=== PATIENT | female | born 1985 | race Caucasian/White ===

== ENCOUNTER 2016-10-04 15:47 | Observation (INO) | payer MEDICAID, OTHER ==
[2016-10-04] MEDS ORDERED: PROTONIX INJ 40 MG VIAL IVP ONE (16:40)
[2016-10-04] MEDS ORDERED: ZOFRAN INJ 4 MG VIAL 16 MG, ATIVAN INJ 2 MG VIAL 1 MG, DECADRON INJ 10 MG in NS 50 ML I... IV PRN (16:40)
[2016-10-04 17:07] LABS: BASOPHILS % (AUTO) 0.5 % (0.2-1.0); EOSINOPHILS % (AUTO) 0.3 % (0.9-2.9); HEMATOCRIT 38.9 % (36.0-47.0); HEMOGLOBIN 13.1 g/dL (12.0-16.0); LYMPHOCYTES # (AUTO) 1.8 X10^3/uL (1.3-2.9); LYMPHOCYTES % (AUTO) 19.8 % (21.0-51.0); MEAN CORPUSCULAR HEMOGLOBIN 29.3 pg (27.0-34.0); MEAN CORPUSCULAR HGB CONC 33.7 g/dL (33.0-35.0); MEAN CORPUSCULAR VOLUME 86.8 fL (80.0-100.0); MEAN PLATELET VOLUME 8.2 fL (7.4-11.0); MONOCYTES # (AUTO) 0.8 x10^3/uL (0.3-0.8); MONOCYTES % (AUTO) 9.2 % (0.0-13.0); NEUTROPHILS # (AUTO) 6.3 x10^3/uL (2.2-4.8); NEUTROPHILS % (AUTO) 70.2 % (42.0-75.0); PLATELET COUNT 255 X10^3/uL (150.0-450.0); RED BLOOD COUNT 4.48 X10^6/uL (3.5-5.4); RED CELL DISTRIBUTION WIDTH 12.8 % (11.6-16.5); WHITE BLOOD COUNT 8.9 X10^3/uL (3.6-10.0)
[2016-10-04 17:21] LABS: ALANINE AMINOTRANSFERASE 47 Units/L (12-78); ALBUMIN 3.5 g/dL (3.4-5.0); ALKALINE PHOSPHATASE 84 Units/L (46-116); AMYLASE 15 Units/L (25-115); ASPARTATE AMINO TRANSFERASE 27 Units/L (15-37); BLOOD UREA NITROGEN 8 mg/dL (7-18); CALCIUM 8.2 mg/dL (8.5-10.1); CARBON DIOXIDE 24.6 mmol/L (21-32); CHLORIDE 104 mmol/L (98-107); CREATININE 0.72 mg/dL (0.55-1.02); GLUCOSE 89 mg/dL (65-99); LIPASE 102 Units/L (73-393); SODIUM 139 mmol/L (136-145); TOTAL PROTEIN 7.4 g/dL (6.4-8.2); eGFR BLACK RACES > 60 (>60); eGFR NON BLACK RACES > 60 (>60)
[2016-10-04] MEDS ORDERED: KLONOPIN TAB 1 MG PO PRN (17:37)
[2016-10-04] MEDS ORDERED: MORPHINE SULFATE INJ 2 MG IVP PRN (17:38)
--- NOTE | 2016-10-04 17:44 | DR.H&P ---
H&P - History & Physical for Day of: H&P Date: 10/04/16 - Chief Complaint Chief Complaint: abdominal pain, nausea, fever - Allergies Allergies/Adverse Reactions: Allergies Allergy/AdvReac Type Severity Reaction Status Date / Time Sulfa Antibiotics Allergy Verified 12/22/14 17:43 Sulfa Drugs Allergy Verified 12/22/14 17:43 - History of Present Illness History of Present Illness: PT WAS A DIRECT ADMIT FROM DR STAHL OFFICE WITH FEVER AND LOWER ABDOMINAL PAIN, WORSE TODAY, ONSET 2-3 DAYS AGO. PMH DDD NECK PAIN/ LOWER BACK PAIN. PLAN TO ADMIT FOR EVALUATION OF ACUTE ABDOMINAL PAIN, R/ P APPENDICITIS/ SURGICAL ABD. PLAN TO OBTAIN LABS CBC CMP, UA, CT ABD/PELIVS, WILL START CIPRO IV, PAIN AND NAUSEA CONTROL - Past Medical History Past Medical History: Anxiety, Arthritis, Depression - Past Surgical History Surgical History: , Cholecystectomy - Family History Family Medical History: Diabetes Mellitus, Cancer, Heart Failure, Hypertension - Social History Does patient currently use any type of tobacco product: No Have you used tobacco products in the last 12 months: No Type of Tobacco Use: None Does any household member use tobacco: No Alcohol Use: None Drug Use: None - Review of Systems Constitutional: Fever, Chills, Sweats, Weakness, Malaise Eyes: No Symptoms Reported ENT: No Symptoms Reported Respiratory: No Symptoms Reported Cardiovascular: No Symptoms Reported Gastrointestinal: Nausea, Abdominal Pain Genitourinary: No Symptoms Reported Musculoskeletal: Back Pain Skin: No Symptoms Reported Neurological: No Symptoms Reported - Physical Exam Vital Signs: Blood Pressure [Right Arm] 116/74 Blood Pressure 135/93 Oriented: Normal Eyes: Normal Ear: Normal Nose: Normal Throat: Normal Respiratory: Clear Throughout Cardiovascular: Normal : Normal Auscultation: Bowel Sounds: Normal Palpation: Normal Tenderness: RLQ, Periumbilical Skin: Decreased Turgur Musculoskeletal: Back:Thoracic, Tender (NECK TENDERNESS/ CHRONIC) Psychiatric: Normal Mood Description: Calm Speech Pattern: Clear, Appropriate - Assessment/Plan (1) Abdominal pain Qualifiers: Abdominal location: unspecified location Qualified Code(s): R10.9 - Unspecified abdominal pain Status: Acute Plan: ADMIT, CBC CMP AMYLASE LIPASE UA ON ADMISSION. CT ABD/PELVIS WITH CONTRAST. START IV FLUIDS, IV ATBX. PAIN AND NAUSEA CONTROL (2) Nausea & vomiting Qualifiers: Vomiting type: unspecified Vomiting Intractability: unspecified Qualified Code(s): R11.2 - Nausea with vomiting, unspecified Status: Acute (3) Chronic back pain Qualifiers: Back pain location: B Back pain laterality: B Sciatica presence: S Sciatica laterality: S Status: Acute
[2016-10-04 18:56] VITALS: BMI 37.4
[2016-10-04] MEDS: NS 1000 ML 1,000 ML IV SCH (18:58)
[2016-10-04] MEDS ORDERED: NS 100 ML IV 100 ML IV ONE (19:47)
[2016-10-04] MEDS ORDERED: BUTT CREAM (COMPOUND) TOP PRN (19:47)
[2016-10-04] MEDS: CIPRO IV 400 MG PREMIX* 400 MG/200 ML IV.SOLN. IV SCH (20:10)
[2016-10-04 20:40] LABS: BILIRUBIN,URINE NEGATIVE (NEGATIVE); BLOOD/HEMOGLOBIN,URINE 1+ (NEGATIVE); GLUCOSE, URINE NEGATIVE (NEGATIVE); KETONES,URINE NEGATIVE (NEGATIVE); LEUKOCYTE ESTERASE ,URINE NEGATIVE (NEGATIVE); NITRITES,URINE NEGATIVE (NEGATIVE); PROTEIN,URINE NEGATIVE (NEGATIVE); UROBILINOGEN,URINE NORMAL (NORMAL)
[2016-10-04 20:52] LABS: AMORPHOUS SEDIMENT,UR TRACE /HPF (NEGATIVE); APPEARANCE,URINE CLEAR (CLEAR); BACTERIA,URINE TRACE /HPF (NEGATIVE); COLOR,URINE PALE YELLOW (YELLOW); SQUAMOUS EPITHELIAL CELL,UR FEW /HPF (NEGATIVE)
[2016-10-04] MEDS ORDERED: PAXIL PO SCH (21:00)
--- NOTE | 2016-10-04 21:35 | CT ---
CT abdomen and pelvis with contrast Indication: right lower quadrant pain with nausea Comparison: 06/28/2015 Technique: Multiple axial images of the abdomen and pelvis were obtained from the lung bases to the pubic symph ysis after the administration of IV contrast. Coronal and sagittal reformatted images were also pro vided. Radiation dose reduction techniques were performed utilizing adjustment for MA/kVP based on patient body size. Findings: The lung bases are clear. The liver, bile ducts, spleen, pancreas and adrenal glands are normal. Pre vious cholecystectomy is noted. No mass, nephrolithiasis or hydronephrosis within either kidney. Sma ll round hypoattenuating lesion within both kidneys are consistent with a cyst based on [place] a ttenuation. Upper GI tract demonstrates no evidence of mass or obstruction. Urinary bladder is selina l. The uterus has a physiologic appearance. Small cysts are noted within both adnexa. Small amount o f pelvic free fluid. The rectum and colon a are unremarkable. The appendix is normal. No pelvic free fluid or adenopathy. There is a circumaortic left renal vein. Very small fat containing periumbilic al hernia is noted. Review of bone windows demonstrates no acute osseous abnormality. Impression: 1.No acute inflammatory process within the abdomen or pelvis. 2. Incidental findings as described above. Reported By:
[2016-10-05] MEDS: NS 1000 ML 1,000 ML IV SCH ×2 (03:42→08:16)
[2016-10-05 06:16] LABS: BASOPHILS % (AUTO) 0.4 % (0.2-1.0); EOSINOPHILS % (AUTO) 0.6 % (0.9-2.9); HEMATOCRIT 35.5 % (36.0-47.0); HEMOGLOBIN 11.9 g/dL (12.0-16.0); LYMPHOCYTES # (AUTO) 2.5 X10^3/uL (1.3-2.9); LYMPHOCYTES % (AUTO) 35.2 % (21.0-51.0); MEAN CORPUSCULAR HEMOGLOBIN 29.3 pg (27.0-34.0); MEAN CORPUSCULAR HGB CONC 33.6 g/dL (33.0-35.0); MEAN PLATELET VOLUME 8.2 fL (7.4-11.0); MONOCYTES % (AUTO) 14.3 % (0.0-13.0); NEUTROPHILS # (AUTO) 3.5 x10^3/uL (2.2-4.8); NEUTROPHILS % (AUTO) 49.5 % (42.0-75.0); PLATELET COUNT 237 X10^3/uL (150.0-450.0); RED BLOOD COUNT 4.07 X10^6/uL (3.5-5.4); RED CELL DISTRIBUTION WIDTH 12.6 % (11.6-16.5); WHITE BLOOD COUNT 7.1 X10^3/uL (3.6-10.0)
[2016-10-05 06:37] LABS: ALANINE AMINOTRANSFERASE 41 Units/L (12-78); ALBUMIN 2.9 g/dL (3.4-5.0); ALKALINE PHOSPHATASE 71 Units/L (46-116); ASPARTATE AMINO TRANSFERASE 26 Units/L (15-37); BLOOD UREA NITROGEN 5 mg/dL (7-18); CALCIUM 7.8 mg/dL (8.5-10.1); CHLORIDE 107 mmol/L (98-107); COR CA(FOR HYPOALB) 8.7 mg/dL (8.5-10.1); CREATININE 0.72 mg/dL (0.55-1.02); GLUCOSE 100 mg/dL (65-99); SODIUM 140 mmol/L (136-145); TOTAL PROTEIN 6.3 g/dL (6.4-8.2); eGFR BLACK RACES > 60 (>60); eGFR NON BLACK RACES > 60 (>60)
[2016-10-05] MEDS: CIPRO IV 400 MG PREMIX* 400 MG/200 ML IV.SOLN. IV SCH (08:15)
[2016-10-05] MEDS ORDERED: AMBIEN PO PRN (10:13)
[2016-10-05 13:16] VITALS: BP 102/56
[2016-10-05] MEDS ORDERED: TYLENOL 325 MG TAB PO PRN (13:27)
[2016-10-06] MEDS ORDERED: PROTONIX TAB 40 MG PO SCH (09:00)
--- NOTE | 2016-10-08 09:03 | PCM.DCPLAN ---
Discharge Summary - Admission Date Date of Admission: 10/04/16 - Discharge Date Discharge Date: 10/05/16 - Admission Diagnoses (1) Abdominal pain Status: Acute - Discharge Diagnoses Discharge Diagnosis: ABD PAIN LIKELY SECONDARY TO GASTROENTERITIS - Discharge Medications Discharge Medications: Oxycodone HCl 1 tab PO PRN PRN 10/05/16 [History] Pantoprazole Sodium 40 mg [PROTONIX 40 MG *] 40 mg PO DAILY 10/05/16 [History] Zolpidem Tartrate [AMBIEN 5 MG *] 5 mg PO HS PRN 10/05/16 [History] - Hospital Course Vital Signs: Temperature 97.7 F Pulse Rate [Right Brachial] 66 Pulse Rate [Left Radial] 73 Respiratory Rate 18 Blood Pressure [Left Arm] 103/70 Blood Pressure [Left Radial 115/69 Artery] Blood Pressure [Right Arm] 102/56 Blood Pressure 135/93 O2 Sat by Pulse Oximetry 97 Latest Lab Results: Laboratory Last Values WBC 7.1 X10^3/uL (3.6-10.0) 10/05/16 05:20 RBC 4.07 X10^6/uL (3.5-5.4) 10/05/16 05:20 Hgb 11.9 g/dL (12.0-16.0) L 10/05/16 05:20 Hct 35.5 % (36.0-47.0) L 10/05/16 05:20 MCV 87.0 fL (80.0-100.0) 10/05/16 05:20 MCH 29.3 pg (27.0-34.0) 10/05/16 05:20 MCHC 33.6 g/dL (33.0-35.0) 10/05/16 05:20 RDW 12.6 % (11.6-16.5) 10/05/16 05:20 Plt Count 237 X10^3/uL (150.0-450.0) 10/05/16 05:20 MPV 8.2 fL (7.4-11.0) 10/05/16 05:20 Neut % 49.5 % (42.0-75.0) 10/05/16 05:20 Lymph % 35.2 % (21.0-51.0) 10/05/16 05:20 [place] % 14.3 % (0.0-13.0) H 10/05/16 05:20 Eos % 0.6 % (0.9-2.9) L 10/05/16 05:20 Baso % 0.4 % (0.2-1.0) 10/05/16 05:20 Neut # 3.5 x10^3/uL (2.2-4.8) 10/05/16 05:20 Lymph # 2.5 X10^3/uL (1.3-2.9) 10/05/16 05:20 [place] # 1.0 x10^3/uL (0.3-0.8) H 10/05/16 05:20 Eos # 0.0 x10^3/uL (0.0-0.2) 10/05/16 05:20 Baso # 0.0 X10^3/uL (0.0-0.1) 10/05/16 05:20 Absolute Nucleated RBC 0.0 /100WBC 10/05/16 05:20 Sodium 140 mmol/L (136-145) 10/05/16 05:20 Corrected Sodium TNP 10/05/16 05:20 Potassium 4.1 mmol/L (3.5-5.1) 10/05/16 05:20 Chloride 107 mmol/L (98-107) 10/05/16 05:20 Carbon Dioxide 24.0 mmol/L (21-32) 10/05/16 05:20 BUN 5 mg/dL (7-18) L 10/05/16 05:20 Creatinine 0.72 mg/dL (0.55-1.02) 10/05/16 05:20 Est GFR (MDRD) Af Amer > 60 (>60) 10/05/16 05:20 Est GFR (MDRD) Non-Af > 60 (>60) 10/05/16 05:20 Glucose 100 mg/dL (65-99) H 10/05/16 05:20 Calcium 7.8 mg/dL (8.5-10.1) L 10/05/16 05:20 Corrected Calcium 8.7 mg/dL (8.5-10.1) 10/05/16 05:20 Total Bilirubin 0.20 mg/dL (0.2-1.0) 10/05/16 05:20 AST 26 Units/L (15-37) 10/05/16 05:20 ALT 41 Units/L (12-78) 10/05/16 05:20 Alkaline Phosphatase 71 Units/L (46-116) 10/05/16 05:20 Total Protein 6.3 g/dL (6.4-8.2) L 10/05/16 05:20 Albumin 2.9 g/dL (3.4-5.0) L 10/05/16 05:20 Globulin 3.4 g/dL (2.5-4.5) 10/05/16 05:20 Albumin/Globulin Ratio 0.9 Ratio (1.1-2.1) L 10/05/16 05:20 Amylase 15 Units/L (25-115) L 10/04/16 17:00 Lipase 102 Units/L (73-393) 10/04/16 17:00 Specimen Type Clean catch urine 10/04/16 20:15 Urine Color Pale yellow (YELLOW) 10/04/16 20:15 Urine Appearance Clear (CLEAR) 10/04/16 20:15 Urine pH 5.0 (5.0 - 8.0) 10/04/16 20:15 Ur Specific [place] 1.005 (1.000-1.030) 10/04/16 20:15 Urine Protein Negative (NEGATIVE) 10/04/16 20:15 Urine Glucose (UA) Negative (NEGATIVE) 10/04/16 20:15 Urine Ketones Negative (NEGATIVE) 10/04/16 20:15 Urine Occult Blood 1+ (NEGATIVE) 10/04/16 20:15 Urine Nitrite Negative (NEGATIVE) 10/04/16 20:15 Urine Bilirubin Negative (NEGATIVE) 10/04/16 20:15 Urine Urobilinogen Normal (NORMAL) 10/04/16 20:15 Ur Leukocyte Esterase Negative (NEGATIVE) 10/04/16 20:15 Urine RBC 3-4 /HPF (NEGATIVE) 10/04/16 20:15 Urine WBC 0-1 /HPF (NEGATIVE) 10/04/16 20:15 Ur Squamous Epith Cells Few /HPF (NEGATIVE) 10/04/16 20:15 Amorphous Sediment Trace /HPF (NEGATIVE) 10/04/16 20:15 Urine Bacteria Trace /HPF (NEGATIVE) 10/04/16 20:15 Ur Culture Indicated? No/not indicated 10/04/16 20:15 Hospital Course: PT WAS A DIRECT ADMIT FROM DR STAHL OFFICE WITH FEVER AND LOWER ABDOMINAL PAIN, WORSE TODAY, ONSET 2-3 DAYS AGO. PMH DDD NECK PAIN/ LOWER BACK PAIN. PATIENT ADMIT FOR EVALUATION OF ACUTE ABDOMINAL PAIN. THE PATIENT HAD LABS WHICH WERE UNREMARKABLE. CT OF ABD REVEALED NO ACUTE FINDING. PATIENT'S SYMPTOMS IMPROVED AND SHE WAS DISCHARGED HOME TO BE FOLLOWED UP ON OP BASIS. - Discharge Plan Disposition: HOME, SELF-CARE Condition: Stable - Follow ups/Referrals Follow ups/Referrals: JOAQUINA TRUONG [Nurse Practitioner] - - Instructions Instructions: Abdominal Pain, Adult, Pain Medicine Instructions, Fever, Adult, [id number] Additional Instructions: rest, bland diet protonix 40mg po daily follow up with pcp in one week Forms: Patient Portal
== END 2016-10-05 14:26 | disposition home or self-care (01) ==
LOC: OBS 15:47
PROVIDERS: ADMIT Internal Medicine; ATTEND Internal Medicine
DX: R10.84 Generalized abdominal pain (principal); K52.89 Other specified noninfective gastroenteritis and colitis; R50.9 Fever, unspecified; R11.2 Nausea with vomiting, unspecified; D64.89 Other specified anemias; M54.2 Cervicalgia; M54.5 Low back pain; F41.8 Other specified anxiety disorders; M13.89 Other specified arthritis, multiple sites; F32.89 Other specified depressive episodes; R19.7 Diarrhea, unspecified
CPT/HCPCS: 36415; 74177; 80053; 81001; 82150; 83690; 85025; A4222; C9113; G0378; J0744

== ENCOUNTER → 2016-12-07 | Outpatient (CLI) | payer MEDICAID ==
[2016-10-30 04:55] VITALS: BP 131/82
--- NOTE | 2016-12-07 10:54 | US ---
HISTORY: Nontoxic goiter Study: Thyroid sonogram Comparison: None Technique: Multiple grayscale sonographic images were obtained. Findings: The right lobe measured 4.6 x 1.6 x 2.2 centimeters, the isthmus 3 millimeters, and the left lobe 4. 5 x 1.6 x 1.8 centimeters. No cysts dominant masses or nodules are identified. IMPRESSION: Normal thyroid sonogram Reported By:
== END ==
LOC: RAD 09:56
PROVIDERS: ATTEND Nurse Practitioner Family
DX: E04.8 Other specified nontoxic goiter (principal)
CPT/HCPCS: 76536

== ENCOUNTER → 2016-12-10 | Outpatient (CLI) | payer MEDICAID ==
[2016-10-30 04:55] VITALS: BP 131/82
--- NOTE | 2016-12-10 15:58 | MRI ---
HISTORY: Low back pain with numbness and tingling. Study: MR lumbar spine without contrast. Comparison: CT of the abdomen and pelvis dated October 04, 2016. CT of the lumbar spine dated February 172015. Technique: Multiplanar multi-sequence MRI of the lumbar spine obtained without contrast utilizing a standard departmental protocol. Findings: The lumbar spine demonstrates normal alignment with the expected signal characteristics of the bone marrow. The conus of the cord terminates normally at the level of L1. There is an 8 mm c yst in the medial right kidney and a 13 mm cysts in the inferior pole of the left kidney. There is a circumaortic left renal vein. The included paraspinal and retroperitoneal soft tissues are otherwis e grossly unremarkable. T12 -- L1: No significant disc disease or spinal canal/neural foraminal narrowing. L1 -- L2: No significant disc disease or spinal canal/neural foraminal narrowing. L2 -- L3: No significant disc disease or spinal canal/neural foraminal narrowing. L3 -- L4: No significant disc disease or spinal canal/neural foraminal narrowing. L4 -- L5: There is a posterior disc protrusion with mass effect on the anterior thecal sac. There is contact of the anterior traversing L5 nerve roots bilaterally without evidence of nerve root imping ement. There is mild neural foraminal narrowing bilaterally. L5 -- S1: No significant disc disease or spinal canal/neural foraminal narrowing. IMPRESSION: Posterior disc protrusion at L4-L5 with contact of the anterior traversing L5 nerve roots bilaterall y. There is mild bilateral neural foraminal narrowing at L4-L5 as well.. Reported By:
== END | disposition home or self-care (01) ==
LOC: RAD 13:56
PROVIDERS: ATTEND Nurse Practitioner Family
DX: R20.2 Paresthesia of skin (principal); M51.36 Other intervertebral disc degeneration, lumbar region
CPT/HCPCS: 72148

== ENCOUNTER 2017-01-22 17:52 | Emergency (ER) | payer MEDICAID ==
[2017-01-22 17:56] VITALS: BMI 37.8
[2017-01-22 17:57] VITALS: BP 121/84
[2017-01-22 18:36] LABS: BILIRUBIN,URINE NEGATIVE (NEGATIVE); BLOOD/HEMOGLOBIN,URINE NEGATIVE (NEGATIVE); GLUCOSE, URINE NEGATIVE (NEGATIVE); KETONES,URINE NEGATIVE (NEGATIVE); LEUKOCYTE ESTERASE ,URINE NEGATIVE (NEGATIVE); NITRITES,URINE NEGATIVE (NEGATIVE); PROTEIN,URINE NEGATIVE (NEGATIVE); UROBILINOGEN,URINE NORMAL (NORMAL)
--- NOTE | 2017-01-22 18:38 | DR.GENAD ---
HPI - PCP Primary Care Physician: DANITA - Complaint/Symptoms Chief Complaint Doctors Comments: Patient is complaining of left CVA and pelvic pain onset last night with pain getting worst today with the pain being 9 of 10. patient states she is having sharp pain lower back radiating to the lower abdomen. Patient denies dysuria, fever, chills, nausea or vomiting. States her period is last with last period 22 December 2016. Patient states she is not using any contraceptives and she is sexually active but has not been in 15 years. She denies tobacco or alcohol usage. Chief Complaint:: PT. C/O RIGHT LOWER QUADRANT AND RIGHT FLANK PAIN THAT IS SHARP IN NATURE. PT. C/O WEAKNESS X 2-3 DAYS. - Nurses notes reviewed Nurses Notes Review: Yes - Source History Provided: Patient - Mode of Arrival Mode of Arrival: Ambulatory - Timing Onset of Chief Complaint: 01/21/17 Came on: Gradually - Duration Duration: Intermittent How lon Duration: Days - Location Location: left CVA and lower abdominal pain - Severity Severity: Moderate - Modifying Factors Worsens:: movement Improves:: nothing PMH - PMH Past Medical History: Yes Past Medical History: Anxiety, Arthritis, Depression, Kidney Stones Past Surgical History: Yes Surgical History: , Cholecystectomy - Family History History of Family Medical Conditions: Yes Family Medical History: Diabetes Mellitus, Cancer, [place], Coronary Artery Disease, Hypertension - Social History Does patient currently use any type of tobacco product: No Have you used tobacco products in the last 12 months: No Type of Tobacco Use: None Does any household member use tobacco: No Alcohol Use: None Do you use any recreational Drugs:: No Lives With: Family Lives Where: Home - infectious screening In the last 2 months have you had wt loss of >10#?: NO Have you had fever, night sweats or hemotysis?: No Have you traveled outside the country in the last 6 months?: No Isolation: Standard ROS - Review of Systems Constitutional: No Symptoms Reported. negative: See HPI, Chills, Diaphoresis, Fever, Malaise, Weakness, Irritable, Fatigue, Loss of Appetite, Other Eyes: No Symptoms Reported. negative: See HPI, Eye Pain, Blurred Vision, Tearing, Discharge, Photophobia, Diplopia, Other ENTM: No Symptoms Reported. negative: See HPI, Ear Pain, Ear Discharge, Pulling on Ears, Hearing Loss, Nose Pain, Nose Discharge, Epistaxis, Nose Congestion, Mouth Pain, Mouth Swelling, Loose Teeth, Drooling, Throat Pain, Throat Swelling, Ear Foreign Body Respiratoy: No Symptoms Reported. negative: See HPI, Productive Cough, Non- Productive Cough, Moist Cough, Dry Cough, Hacking Cough, Barking Cough, Brassy Cough, Orthopnea, Short of Breath, Stridor, Wheezing, Hemoptysis, Other Cardiovascular: No Symptoms Reported. negative: See HPI, Chest Pain, Edema, Palpitations, Syncope, Cyanosis, Skin Mottling, Other Gastrointestinal/Abdominal: No Symptoms Reported, Abdominal Pain. negative: See HPI, Constipation, Diarrhea, Nausea, Vomiting, Food Intolerance, Other Genitourinary: No Symptoms Reported. negative: See HPI, Discharge, Dysuria, Frequency, Hematuria, Pain, Bleeding, Other Neurological: No Symptoms Reported. negative: See HPI, Anxiety, Depressed, Emotional Problems, Headache, Numbness, Paresthesia, Pre-existing Deficit, Seizure, Tingling, Tremors, Weakness, Dizziness, Problems Walking, Speech Problem, Other Musculoskeletal: No Symptoms Reported Integumentary: No Symptoms Reported. negative: See HPI, Change in Color, Change in Hair/Nails, Dryness, Lesions, Lumps, Rash, Itching, Wound, Bruises, Juandice, Other Hematologic/Lymphatic: No Symptoms Reported. negative: See HPI, Anemia, Blood Clots, Easy Bleeding, Easy Bruising, Swollen Glands, Lymphadenopathy, Other Endocrine: No Symptoms Reported. negative: See HPI, Excessive Sweating, Flushing, Intolerance to Cold, Intolerance to Heat, Increased Hunger, Increased Thirst, Increased Urine, Unexplained Weight Gain, Unexplained Weight Loss, Failure to Thrive, Decreased Appetite, Other Psychiatric: No Symptoms Reported. negative: See HPI, Anxiety, Depression, Hallucinations, Excessive crying, Suicidal, Other PE - Vital Signs Vitals: Temperature 98 F Pulse Rate 81 Respiratory Rate 17 Blood Pressure [Left Arm] 103/70 Blood Pressure [Left Radial 115/69 Artery] Blood Pressure [Right Arm] 102/56 Blood Pressure 121/84 O2 Sat by Pulse Oximetry 100 - General Limitations: No Limitations General Appearance: Alert, In Distress (moderate) - Head Head Exam: Normal Inspection, Atraumatic, Normocephalic - Eyes Eye exam: Normal Appearance, PERRL, EOMI. negative: Scleral Icterus, Conjunctival Injection, Nystagmus, Miosis, Mydrasis, Periorbital Swelling, Periorbital Tenderness, Other - ENT ENT Exam: Normal Exam, Normal Oropharynx, Normal External Ear Exam, Mucous Membranes Moist, TM's Normal Bilaterally External Ear Exam: Normal External Inspection TM/Canal Exam: Bilateral Normal Nose Exam: Normal Nose Exam, Sinus Tenderness Mouth Exam: Normal Inspection. negative: Drooling, Trismus, Lip Swelling, Tongue Elevation, Tongue Swelling, Laceration, Other Throat Exam: Normal Inspection. negative: Tonsillar Erythema, Tonsillomegaly, Tonsillar Exudate, R Peritonsillar Mass, L Peritonsillar Mass, Muffled Voice, Other - Neck Neck Exam: Normal Inspection, Full ROM, Trachea Midline. negative: Tenderness, Meningismus, Lymphadenopathy, Thyromegaly, Other - Chest Chest Inspection: Normal Inspection, Symmetric Chest Wall Rise - Respiratory Respiratory Exam: Normal Lung Sounds Bilat Respiratory Exam: Bilateral Clear to Auscultation - Cardiovascular Cardiovascular Exam: Regular Rate, Normal Rhythm, Normal Heart Sounds. negative : Bradycardia, Tachycardia, Irregular Rhythm, Systolic Murmur, Diastolic Murmur , Rubs, Gallop, Clicks, JVD, +S1, +S2, +S3, +S4, Other - Abdominal Exam Abdominal Exam: Normal Inspection, Normal Bowel Sounds, Soft Abdominal Tenderness: LLQ, Epigastrium, Suprapubic, Moderate - Extremities Extremities Exam: Normal Inspection, Full ROM, Normal Capillary Refill. negative: Tenderness, Edema, Joint Swelling, Calf Tenderness, Other - Back Back Exam: Normal Inspection, Full ROM - Neurologic Neurological Exam: Alert, Oriented X3, CN II-XII Intact, Normal Gait, Reflexes Normal - Psychiatric Psychiatric Exam: Normal Affect, Normal Mood - Skin Skin Exam: Warm, Dry, Intact, Normal Color. negative: Rash, Cyanosis, Diaphoresis, Erythema, Pallor, Mottled, Other ROR - Labs Reviewed Laboratory Results Reviewed?: Yes (all labs and x-ray results reviewed and discussed with patient) Result Diagrams: 01/22/17 18:45 01/22/17 18:45 Laboratory: WBC 12.6 X10^3/uL (3.6-10.0) H 01/22/17 18:45 RBC 4.11 X10^6/uL (3.5-5.4) 01/22/17 18:45 Hgb 12.3 g/dL (12.0-16.0) 01/22/17 18:45 Hct 36.4 % (36.0-47.0) 01/22/17 18:45 MCV 88.6 fL (80.0-100.0) 01/22/17 18:45 MCH 30.0 pg (27.0-34.0) 01/22/17 18:45 MCHC 33.8 g/dL (33.0-35.0) 01/22/17 18:45 RDW 13.4 % (11.6-16.5) 01/22/17 18:45 Plt Count 296 X10^3/uL (150.0-450.0) 01/22/17 18:45 MPV 8.5 fL (7.4-11.0) 01/22/17 18:45 Neut % 66.6 % (42.0-75.0) 01/22/17 18:45 Lymph % 24.6 % (21.0-51.0) 01/22/17 18:45 [place] % 7.3 % (0.0-13.0) 01/22/17 18:45 Eos % 0.3 % (0.9-2.9) L 01/22/17 18:45 Baso % 1.2 % (0.2-1.0) H 01/22/17 18:45 Neut # 8.4 x10^3/uL (2.2-4.8) H 01/22/17 18:45 Lymph # 3.1 X10^3/uL (1.3-2.9) H 01/22/17 18:45 [place] # 0.9 x10^3/uL (0.3-0.8) H 01/22/17 18:45 Eos # 0.0 x10^3/uL (0.0-0.2) 01/22/17 18:45 Baso # 0.1 X10^3/uL (0.0-0.1) 01/22/17 18:45 Absolute Nucleated RBC 0.3 /100WBC 01/22/17 18:45 Sodium 139 mmol/L (136-145) 01/22/17 18:45 Corrected Sodium TNP 01/22/17 18:45 Potassium 4.0 mmol/L (3.5-5.1) 01/22/17 18:45 Chloride 105 mmol/L (98-107) 01/22/17 18:45 Carbon Dioxide 25.3 mmol/L (21-32) 01/22/17 18:45 BUN 9 mg/dL (7-18) 01/22/17 18:45 Creatinine 0.75 mg/dL (0.55-1.02) 01/22/17 18:45 Est GFR (MDRD) Af Amer > 60 (>60) 01/22/17 18:45 Est GFR (MDRD) Non-Af > 60 (>60) 01/22/17 18:45 Glucose 98 mg/dL (65-99) 01/22/17 18:45 Calcium 8.8 mg/dL (8.5-10.1) 01/22/17 18:45 Corrected Calcium TNP 01/22/17 18:45 Total Bilirubin 0.20 mg/dL (0.2-1.0) 01/22/17 18:45 AST 28 Units/L (15-37) 01/22/17 18:45 ALT 54 Units/L (12-78) 01/22/17 18:45 Alkaline Phosphatase 81 Units/L (46-116) 01/22/17 18:45 Total Protein 7.5 g/dL (6.4-8.2) 01/22/17 18:45 Albumin 3.4 g/dL (3.4-5.0) 01/22/17 18:45 Globulin 4.1 g/dL (2.5-4.5) 01/22/17 18:45 Albumin/Globulin Ratio 0.8 Ratio (1.1-2.1) L 01/22/17 18:45 Amylase 20 Units/L (25-115) L 01/22/17 18:45 Lipase 154 Units/L (73-393) 01/22/17 18:45 HCG, Qual Positive >10 mIU/mL 01/22/17 18:45 HCG, Quant 9311 mIU/mL (0-6) H 01/22/17 18:45 Specimen Type Clean catch urine 01/22/17 18:12 Urine Color Yellow (YELLOW) 01/22/17 18:12 Urine Appearance Clear (CLEAR) 01/22/17 18:12 Urine pH 7.0 (5.0 - 8.0) 01/22/17 18:12 Ur Specific [place] 1.015 (1.000-1.030) 01/22/17 18:12 Urine Protein Negative (NEGATIVE) 01/22/17 18:12 Urine Glucose (UA) Negative (NEGATIVE) 01/22/17 18:12 Urine Ketones Negative (NEGATIVE) 01/22/17 18:12 Urine Occult Blood Negative (NEGATIVE) 01/22/17 18:12 Urine Nitrite Negative (NEGATIVE) 01/22/17 18:12 Urine Bilirubin Negative (NEGATIVE) 01/22/17 18:12 Urine Urobilinogen Normal (NORMAL) 01/22/17 18:12 Ur Leukocyte Esterase Negative (NEGATIVE) 01/22/17 18:12 Urine RBC None seen /HPF (NEGATIVE) 01/22/17 18:12 Urine WBC 0-3 /HPF (NEGATIVE) 01/22/17 18:12 Ur Squamous Epith Cells Few /HPF (NEGATIVE) 01/22/17 18:12 Amorphous Sediment 1+ /HPF (NEGATIVE) 01/22/17 18:12 Urine Bacteria 1+ /HPF (NEGATIVE) 01/22/17 18:12 Ur Culture Indicated? No/not indicated 01/22/17 18:12 - XRAY XRAY Interpreted by: Radiologist (US Pelvic: Single intrauterine pregnanacy with gestational sac measuring 8.1mm gestational age 5 weeks 2 days without measurable heart tones.) - Diagnosis Discharge Problem: Abdominal pain Qualifiers: Abdominal location: generalized Qualified Code(s): R10.84 - Generalized abdominal pain Qualifiers: Weeks of gestation: less than 8 weeks Qualified Code(s): Z3A.01 - Less than 8 weeks gestation of - Discharge Plan Disposition: HOME, SELF-CARE Condition: Stable - Follow ups/Referrals Follow ups/Referrals: LEON SAMAYOA [Primary Care Provider] - 3 days AR DUTTON [STAFF PHYSICIAN] - 3 days - Instructions Instructions: Medicines During , , Abdominal Pain During , [id number]
[2017-01-22 18:40] LABS: APPEARANCE,URINE CLEAR (CLEAR); COLOR,URINE YELLOW (YELLOW)
[2017-01-22 18:41] LABS: RBC,URINE NONE SEEN /HPF (NEGATIVE)
[2017-01-22 18:42] LABS: AMORPHOUS SEDIMENT,UR 1+ /HPF (NEGATIVE); BACTERIA,URINE 1+ /HPF (NEGATIVE); SQUAMOUS EPITHELIAL CELL,UR FEW /HPF (NEGATIVE)
[2017-01-22 19:04] LABS: BASOPHILS # (AUTO) 0.1 X10^3/uL (0.0-0.1); BASOPHILS % (AUTO) 1.2 % (0.2-1.0); EOSINOPHILS % (AUTO) 0.3 % (0.9-2.9); HEMATOCRIT 36.4 % (36.0-47.0); HEMOGLOBIN 12.3 g/dL (12.0-16.0); LYMPHOCYTES # (AUTO) 3.1 X10^3/uL (1.3-2.9); LYMPHOCYTES % (AUTO) 24.6 % (21.0-51.0); MEAN CORPUSCULAR HGB CONC 33.8 g/dL (33.0-35.0); MEAN CORPUSCULAR VOLUME 88.6 fL (80.0-100.0); MEAN PLATELET VOLUME 8.5 fL (7.4-11.0); MONOCYTES # (AUTO) 0.9 x10^3/uL (0.3-0.8); MONOCYTES % (AUTO) 7.3 % (0.0-13.0); NEUTROPHILS # (AUTO) 8.4 x10^3/uL (2.2-4.8); NEUTROPHILS % (AUTO) 66.6 % (42.0-75.0); PLATELET COUNT 296 X10^3/uL (150.0-450.0); RED BLOOD COUNT 4.11 X10^6/uL (3.5-5.4); RED CELL DISTRIBUTION WIDTH 13.4 % (11.6-16.5); WHITE BLOOD COUNT 12.6 X10^3/uL (3.6-10.0)
[2017-01-22 19:06] LABS: SERUM PREGNANCY TEST, QUAL POSITIVE >10 mIU/mL
[2017-01-22 19:13] LABS: ALANINE AMINOTRANSFERASE 54 Units/L (12-78); ALBUMIN 3.4 g/dL (3.4-5.0); ALKALINE PHOSPHATASE 81 Units/L (46-116); AMYLASE 20 Units/L (25-115); ASPARTATE AMINO TRANSFERASE 28 Units/L (15-37); BLOOD UREA NITROGEN 9 mg/dL (7-18); CALCIUM 8.8 mg/dL (8.5-10.1); CARBON DIOXIDE 25.3 mmol/L (21-32); CHLORIDE 105 mmol/L (98-107); CREATININE 0.75 mg/dL (0.55-1.02); GLUCOSE 98 mg/dL (65-99); LIPASE 154 Units/L (73-393); SODIUM 139 mmol/L (136-145); TOTAL PROTEIN 7.5 g/dL (6.4-8.2); eGFR BLACK RACES > 60 (>60); eGFR NON BLACK RACES > 60 (>60)
--- NOTE | 2017-01-22 21:43 | US ---
History: 31-year-old female with low back pain and abdominal pain with quantitative HCG 9311, patie nt unaware of the until positive HCG in the emergency room. Exam: Pelvic ultrasound Comparison: None. Technique: Multiple grayscale and color flow Doppler images of the pelvis were obtained. Findings: The uterus measures 8.5 x 5.7 x 6.4 cm and contains a single intrauterine with gestational sac measuring 8.1 mm corresponding to estimated gestational age of 5 weeks 2 days. There are no det ectable heart tones, pole or yolk sac. No evidence for myometrial masses or calcificati ons can be observed. The right and left adnexa are unremarkable. The echotexture of the right and left ovaries are unremarkable. The right and left ovaries are normal in size. The right ovary measu res 3.5 x 3.1 cm. The left ovary measures 3.1 x 2.6 cm. No adnexal mass or free fluid can be identi fied. IMPRESSION: 1. Single intrauterine with gestational sac measuring 8.1 mm foreign estimated gestationa l age of 5 weeks 2 days without measurable heart tones. Followup with OB. Reported By:
== END 2017-01-22 22:06 | disposition home or self-care (01) ==
LOC: ER 18:02
DX: R10.84 Generalized abdominal pain (principal); Z3A.01 Less than 8 weeks gestation of pregnancy
CPT/HCPCS: 36415; 76801; 80053; 81001; 82150; 83690; 84702; 84703; 85025; 99283; 99284

== ENCOUNTER 2017-04-07 16:02 | Emergency (ER) | payer OTHER, MEDICAID ==
[2017-04-07 16:18] VITALS: BP 142/65; BMI 36.6
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
== END 2017-04-07 19:00 | disposition home or self-care (01) ==
LOC: ER 16:02
DX: Z04.3 Encounter for examination and observation following other accident (principal); V87.7XXA Person injured in collision between other specified motor vehicles (traffic), initial encounter
CPT/HCPCS: 72125; 73030; 99282; 99283

== ENCOUNTER → 2017-04-07 | Outpatient (CLI) | payer MEDICAID ==
--- NOTE | 2017-04-07 16:00 | RAD ---
HISTORY: Left lower rib cage injury Study: PA and lateral views of the chest. Comparison: None. Findings: The cardiomediastinal silhouette is normal. No focal consolidations, pleural effusions or pneumothora x. Osseous structures demonstrate no acute abnormality. IMPRESSION: 1. No acute cardiopulmonary process. Reported By:
== END ==
LOC: RAD 14:40
PROVIDERS: ATTEND Nurse Practitioner Family
DX: S29.8XXA Other specified injuries of thorax, initial encounter (principal); X58.XXXA Exposure to other specified factors, initial encounter
CPT/HCPCS: 71020

== ENCOUNTER → 2017-06-03 | Outpatient (CLI) | payer MEDICAID ==
--- NOTE | 2017-06-06 15:55 | CT ---
CT abdomen and pelvis without contrast Indication: Bilateral flank pain, history of urinary calculus Comparison: 10/04/2016 Technique: CT images of the abdomen and pelvis were obtained without contrast. Automatic exposure con trol was utilized. Findings: No aggressive osseous lesions. The lung bases are clear. Within the limitations of a noncontrast study, the liver, spleen, stomach, duodenum, pancreas, adrena ls, and kidneys are unremarkable. Specifically, there are no renal or ureteral stones, or hydronephro sis. Previous cholecystectomy noted. No significant bowel thickening or dilatation of the lower GI tr act observed. Normal appendix. The uterus and ovaries are noted. The urinary bladder and rectum are u nremarkable. No free fluid or adenopathy identified. Circumaortic left renal vein incidentally noted. Impression: No etiology for patient's symptoms identified. Specifically, no evidence for urinary stone or obstruc tion. Reported By:
== END ==
LOC: RAD 13:54
PROVIDERS: ATTEND Nurse Practitioner Family
DX: R10.84 Generalized abdominal pain (principal); Z87.442 Personal history of urinary calculi
CPT/HCPCS: 74176

== ENCOUNTER → 2017-08-08 | Outpatient (CLI) | payer MEDICAID ==
--- NOTE | 2017-08-08 13:44 | RAD ---
Examination: Cervical spine, 6 views History: Neck pain Findings: AP, lateral and open-mouth odontoid views were obtained, including lateral views in flexion and extension. There is disc narrowing and posterior osteophyte formation at C4-5. Alignment is normal and does not change with sagittal motion. No fracture or bone destruction or prevertebral soft tissue abnormality is noted. There is an anterior osteophyte at C5-6 level. The C1-2 complex is intact. Impression: Degenerative disc disease and spondylosis at levels described. No acute features. Normal alignment persists between flexion and extension, without instability. The Reported By:
== END ==
LOC: RAD 12:58
PROVIDERS: ATTEND Neurological Surgery
DX: M48.02 Spinal stenosis, cervical region (principal)
CPT/HCPCS: 72050

== ENCOUNTER 2017-08-30 18:02 | Emergency (ER) | payer MEDICAID ==
[2017-08-30 18:12] VITALS: BP 124/68; BMI 39.4
--- NOTE | 2017-08-30 19:41 | DR.GENAD ---
HPI - PCP Primary Care Physician: stiven - Complaint/Symptoms Chief Complaint Doctors Comments: Patient is being followed by her primary care physician for fluctuation of in blood glucose level. She has not been diagnosed with diabetes. She has been keeping a log. Blood glucose is 83mg/dl Chief Complaint:: "I feel light headed, dizzy, shaking, weak, my sugar is going up and down for a week now " - Source History Provided: Patient - Mode of Arrival Mode of Arrival: Ambulatory - Timing Onset of Chief Complaint: 08/23/17 PMH - PMH Past Medical History: Yes Past Medical History: Anxiety, Arthritis, Depression, Kidney Stones Past Surgical History: Yes Surgical History: , Cholecystectomy - Family History History of Family Medical Conditions: Yes Family Medical History: Diabetes Mellitus, Cancer, [place], Coronary Artery Disease, Hypertension - Social History Does patient currently use any type of tobacco product: No Have you used tobacco products in the last 12 months: No Type of Tobacco Use: None Does any household member use tobacco: No Alcohol Use: None Do you use any recreational Drugs:: No Lives With: Family Lives Where: Home - infectious screening In the last 2 months have you had wt loss of >10#?: NO Have you had fever, night sweats or hemotysis?: No Have you traveled outside the country in the last 6 months?: No Isolation: Standard ROS - Review of Systems Eyes: No Symptoms Reported ENTM: No Symptoms Reported Respiratoy: No Symptoms Reported Cardiovascular: No Symptoms Reported Gastrointestinal/Abdominal: No Symptoms Reported Genitourinary: No Symptoms Reported Neurological: No Symptoms Reported Musculoskeletal: No Symptoms Reported Integumentary: No Symptoms Reported Hematologic/Lymphatic: No Symptoms Reported Endocrine: No Symptoms Reported Psychiatric: No Symptoms Reported All Other Systems: Reviewed and Negative PE - Vital Signs Vitals: Temperature 97.2 F Pulse Rate 87 Respiratory Rate 18 Blood Pressure [Left Arm] 103/70 Blood Pressure [Left Radial 115/69 Artery] Blood Pressure [Right Arm] 102/56 Blood Pressure 124/68 O2 Sat by Pulse Oximetry 99 - General Limitations: No Limitations General Appearance: Alert, In No Apparent Distress - Head Head Exam: Normal Inspection, Atraumatic - Eyes Eye exam: Normal Appearance, PERRL, EOMI - ENT ENT Exam: Normal Exam External Ear Exam: Normal External Inspection TM/Canal Exam: Bilateral Normal Nose Exam: Normal Nose Exam Mouth Exam: Normal Inspection Throat Exam: Normal Inspection - Neck Neck Exam: Normal Inspection, Full ROM - Chest Chest Inspection: Normal Inspection, Symmetric Chest Wall Rise - Respiratory Respiratory Exam: Normal Lung Sounds Bilat Respiratory Exam: Bilateral Clear to Auscultation - Cardiovascular Cardiovascular Exam: Regular Rate, Normal Rhythm - Abdominal Exam Abdominal Exam: Normal Inspection Abdominal Tenderness: negative: RUQ, RLQ, LUQ, LLQ, Epigastrium, Suprapubic, Diffuse, Mild, Moderate, Severe, Other - Extremities Extremities Exam: Normal Inspection, Full ROM - Back Back Exam: Normal Inspection, Full ROM - Neurologic Neurological Exam: Alert, Oriented X3, CN II-XII Intact - Psychiatric Psychiatric Exam: Normal Affect, Normal Mood - Skin Skin Exam: Warm, Dry, Intact ROR - Labs Reviewed Laboratory: POC Glucose (mg/dL) 83 mg/dL (65-99) 08/30/17 18:28 Influenza Type A (PCR) Negative (NEGATIVE) 08/30/17 18:25 Influenza Type B (PCR) Negative (NEGATIVE) 08/30/17 18:25 - Diagnosis Discharge Problem: Borderline hyperglycemia - Discharge Plan Condition: Stable - Follow ups/Referrals Follow ups/Referrals: LEON SAMAYOA [Primary Care Provider] - 3 days - Instructions
== END 2017-08-30 19:54 | disposition home or self-care (01) ==
LOC: ER 18:02
DX: R42 Dizziness and giddiness (principal)
CPT/HCPCS: 87502; 99282

== ENCOUNTER 2017-09-01 10:27 | Day surgery (SDC) | payer MEDICAID ==
[2017-09-01] MEDS ORDERED: D5 LR 1000 ML 1,000 ML IV ONE (10:57)
[2017-09-01] MEDS ORDERED: DIPRIVAN VIAL 20 ML ONE ×2 (11:25→11:46)
[2017-09-01 13:48] VITALS: BP 119/62
== END 2017-09-01 12:15 | disposition home or self-care (01) ==
LOC: SURG1 10:27
PROVIDERS: ATTEND Internal Medicine Gastroenterology
PROC: 0DB58ZX Excision of Esophagus, Via Natural or Artificial Opening Endoscopic, Diagnostic (ICD-10-PCS; principal; 2017-09-01 16:30)
PROC: 0DB68ZX Excision of Stomach, Via Natural or Artificial Opening Endoscopic, Diagnostic (ICD-10-PCS; principal; 2017-09-01 16:30)
PROC: 0DB88ZX Excision of Small Intestine, Via Natural or Artificial Opening Endoscopic, Diagnostic (ICD-10-PCS; principal; 2017-09-01 16:30)
PROC: 0DJ08ZZ Inspection of Upper Intestinal Tract, Via Natural or Artificial Opening Endoscopic (ICD-10-PCS; principal; 2017-09-01 16:30)
PROC: 0D757ZZ Dilation of Esophagus, Via Natural or Artificial Opening (ICD-10-PCS; principal; 2017-09-01 16:30)
DX: R13.19 Other dysphagia (principal); R10.13 Epigastric pain; R11.0 Nausea; K20.8 Other esophagitis; K22.2 Esophageal obstruction; K22.4 Dyskinesia of esophagus; K29.60 Other gastritis without bleeding
CPT/HCPCS: A4217; J3490; J7120

== ENCOUNTER 2024-03-26 06:12 | Inpatient (IN) ==
[2024-03-26] MEDS: LR 1,000 ML IV 1,000 ML IV SCH (06:35)
[2024-03-26] MEDS: NOZIN NASAL SANITIZER TP ONE (06:36)
[2024-03-26] MEDS: ANCEF VIAL 1 GRAM ONE (06:36)
[2024-03-26] MEDS: LR 1,000 ML IV 1,000 ML IV ONE (06:37)
[2024-03-26 07:01] VITALS: BMI 39.9
[2024-03-26] MEDS: ANCEF VIAL 1 GRAM IVP ONE (07:29)
[2024-03-26] MEDS: TRANSDERM-SCOP TD ONE (07:29)
[2024-03-26] MEDS: XYLOCAINE 2 % (PLAIN) ONE (07:29)
[2024-03-26] MEDS ORDERED: ULTANE GAS IN ONE (07:29)
[2024-03-26] MEDS: DIPRIVAN VIAL 20 ML ONE (07:29)
[2024-03-26] MEDS: VERSED ONE (07:29)
[2024-03-26] MEDS: BETADINE SOLN ONE (07:29)
[2024-03-26] MEDS: NS 100 ML IV 100 ML ONE (07:29)
[2024-03-26] MEDS: PEPCID 20 MG VIAL ONE (07:29)
[2024-03-26] MEDS: ZEMURON 100 MG VIAL ONE (07:29)
[2024-03-26] MEDS: FENTANYL VIAL INJ 100 mcg ONE (07:29)
[2024-03-26] MEDS: ZOFRAN INJ 4 MG VIAL ONE (07:29)
[2024-03-26] MEDS: TORADOL 30 MG VIAL ONE (07:29)
[2024-03-26] MEDS: DECADRON INJ ONE (07:29)
[2024-03-26] MEDS: BRIDION ONE (07:29)
[2024-03-26] MEDS: OFIRMEV IV 1000 MG VIAL 1,000 MG/100 ML VIAL IV ONE (07:29)
[2024-03-26] MEDS: ROBINUL ONE (07:59)
[2024-03-26] MEDS: REGLAN INJ 10 MG VIAL ONE (08:09)
[2024-03-26] MEDS: DILAUDID INJ ONE (08:24)
[2024-03-26] MEDS ORDERED: ZOFRAN INJ 4 MG VIAL IVP PRN (09:26)
[2024-03-26] MEDS ORDERED: BENADRYL INJ 50 MG VIAL IVP PRN (09:26)
[2024-03-26] MEDS ORDERED: DILAUDID INJ IVP PRN (09:26)
[2024-03-26] MEDS: ProvayBLUE 0.5% ONE (09:35)
[2024-03-26] MEDS ORDERED: NARCAN INJ IVP PRN (10:47)
[2024-03-26] MEDS: MORPHINE SULFATE PCA 30 MG IVP PRN (11:15)
[2024-03-26] MEDS: D5 1/2 NS 1,000 ML 1,000 ML IV SCH (11:58)
[2024-03-26] MEDS: ZOFRAN INJ 4 MG VIAL IVP PRN (17:32)
[2024-03-26] MEDS: CARAFATE PO SCH (20:05)
[2024-03-26] MEDS: KLONOPIN TAB 1 MG PO SCH (20:05)
[2024-03-26] MEDS: PROTONIX TAB 40 MG PO SCH (20:06)
[2024-03-26] MEDS: ZESTRIL TAB 10 MG PO SCH (20:06)
[2024-03-26] MEDS: TORADOL 30 MG VIAL IVP PRN (21:46)
[2024-03-26] MEDS: MYLICON TAB 80 MG CHEW PO PRN (21:46)
[2024-03-27 05:14] LABS: BASOPHILS # (AUTO) 0.1 X10^3/uL (0.0-0.1); BASOPHILS % (AUTO) 0.5 % (0.2-1.0); HEMATOCRIT 31.7 % (36.0-47.0); HEMOGLOBIN 10.7 g/dL (12.0-16.0); LYMPHOCYTES # (AUTO) 2.5 X10^3/uL (1.3-2.9); MEAN CORPUSCULAR HEMOGLOBIN 29.5 pg (27.0-34.0); MEAN CORPUSCULAR HGB CONC 33.7 g/dL (33.0-35.0); MEAN CORPUSCULAR VOLUME 87.4 fL (80.0-100.0); MEAN PLATELET VOLUME 8.1 fL (7.4-11.0); MONOCYTES # (AUTO) 1.6 x10^3/uL (0.3-0.8); MONOCYTES % (AUTO) 11.7 % (0.0-13.0); NEUTROPHILS # (AUTO) 9.5 x10^3/uL (2.2-4.8); NEUTROPHILS % (AUTO) 69.8 % (42.0-75.0); PLATELET COUNT 327 X10^3/uL (150.0-450.0); RED BLOOD COUNT 3.63 X10^6/uL (3.5-5.4); RED CELL DISTRIBUTION WIDTH 12.8 % (11.6-16.5); WHITE BLOOD COUNT 13.7 X10^3/uL (3.6-10.0)
[2024-03-27 05:21] LABS: BLOOD UREA NITROGEN 5 mg/dL (7-18); CALCIUM 8.2 mg/dL (8.5-10.1); CARBON DIOXIDE 25.7 mmol/L (21-32); CHLORIDE 100 mmol/L (98-107); COR NA(FOR HYPERGLY) 136 mmol/L (136-145); CREATININE 0.71 mg/dL (0.55-1.02); GLUCOSE 121 mg/dL (65-99); POTASSIUM 3.9 mmol/L (3.5-5.1); SODIUM 135 mmol/L (136-145); eGFR NON BLACK RACES > 60 (>60)
[2024-03-27] MEDS ORDERED: ROXICODONE TAB 15 MG PO PRN (07:32)
[2024-03-27] MEDS: PREVACID PO SCH (08:12)
[2024-03-27] MEDS: PAXIL PO SCH (08:12)
[2024-03-27] MEDS: COLACE CAP 100 MG PO SCH (08:13)
[2024-03-27] MEDS: ESTRACE PO SCH (08:13)
[2024-03-27] MEDS: NEURONTIN CAP 300 MG PO SCH (08:15)
[2024-03-27] MEDS: MOTRIN TAB 800 MG PO PRN (10:50)
[2024-03-27] MEDS: BENADRYL INJ 50 MG VIAL IVP PRN (12:28)
[2024-03-27] MEDS: BACTROBAN TOPICAL OINT TOP SCH (14:13)
[2024-03-28] MEDS: ESTRACE PO SCH (08:22)
[2024-03-28 09:46] VITALS: BP 140/81; PULSE 95; TEMP 98.1; O2SAT 97
[2024-03-28 09:48] VITALS: RESP 17
== END 2024-03-28 09:35 | disposition home or self-care (01) | DRG 742 ==
LOC: MED/SURG 06:12
PROVIDERS: ADMIT Specialist; ATTEND Specialist
DX: M54.59 Other low back pain; K21.9 Gastro-esophageal reflux disease without esophagitis; R10.2 Pelvic and perineal pain; N92.5 Other specified irregular menstruation; N94.4 Primary dysmenorrhea; F41.8 Other specified anxiety disorders; I10 Essential (primary) hypertension; E87.1 Hypo-osmolality and hyponatremia; R73.09 Other abnormal glucose; N73.6 Female pelvic peritoneal adhesions (postinfective)